=== PATIENT | female | born 1975 | race Caucasian/White ===

== ENCOUNTER 2023-07-07 20:25 | Emergency (ER) | payer OTHER ==
[2023-07-07] MEDS ORDERED: Oxymetazoline HCl 0.05% ( 15 ML ) ONE (21:02)
[2023-07-07] MEDS ORDERED: Acetaminophen 500 MG TAB ONE (21:03)
== END 2023-07-07 21:25 | disposition home or self-care (01) ==
LOC: CSHERS 20:25
DX: J06.9 Acute upper respiratory infection, unspecified (principal)
CPT/HCPCS: 99283